=== PATIENT | male | born 1995 | race African-American/Black ===

== ENCOUNTER 2019-07-13 03:38 | Emergency (ER) | payer OTHER ==
[~2019-07-13] VITALS: Ht 177.8 cm; Wt 81.2 kg
--- NOTE | 2019-07-13 03:40 | PHYS DOC ---
Past History Past Medical History Allergies (RAINE DENNY MD) Additional Smoking Information: vape (RAINE DENNY MD) General Adult HPI: HPI: ".. I woke up with a really bad chest pain.. about 1 1/2 hours ago.. here in center of my chest.. 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 Patient localizes pain in the left of sternal border at approximately T5 level. Pain is rated as 10 out of 10. Patient states it does have some burning characteristics. Patient denies any history of trauma. Patient denies any prior history of cardiac disorders with him or family members. Patient denies any history of coagulopathy with him or family members. Notes recent travel outside the [place] area. No history of immunosuppression. No history of coughing or fever. No history of specific ill contacts. No history immunosuppression. Patient does have an allergy to ibuprofen which causes swelling. Patient does vape. (RAINE DENNY MD) Review of Systems: Review of Systems: Constitutional: Denies fever or chills Eyes: Denies change in visual acuity HENT: Denies nasal congestion or sore throat Respiratory: Denies cough or shortness of breath Cardiovascular: Complains of chest pain GI: Denies abdominal pain, nausea, vomiting, bloody stools or diarrhea : Denies dysuria Musculoskeletal: Denies back pain or joint pain Integument: Denies rash Neurologic: Denies headache, focal weakness or sensory changes Endocrine: Denies polyuria or polydipsia Lymphatic: Denies swollen glands Psychiatric: Denies depression or anxiety (RAINE DENNY MD) Heart Score: HEART Score for Chest Pain: HEART Score for Chest Pain Response (Comments) Value History Slighlty/Non-Suspicious 0 ECG Normal 0 Age < 45 0 Risk Factors 1 or 2 Risk Factors 1 Troponin < Normal Limit 0 Total 1 Risk Factors: Risk Factors: DM, Current or recent (<one month) smoker, HTN, HLP, family history of CAD, obesity. Risk Scores: Score 0 - 3: 2.5% MACE over next 6 weeks - Discharge Home Score 4 - 6: 20.3% MACE over next 6 weeks - Admit for Clinical Observation Score 7 - 10: 72.7% MACE over next 6 weeks - Early Invasive Strategies (RAINE DENNY MD) Family History: Family History: Mother has hypertension age 40s, father is healthy (RAINE DENNY MD) Current Medications: Current Meds: See nursing for home meds (RAINE DENNY MD) Allergies: Allergies: Allergic to ibuprofen (RAINE DENNY MD) Physical Exam: PE: Constitutional: Well developed, well nourished, reports acute distress, non- toxic appearance. [] HENT: Normocephalic, atraumatic, bilateral external ears normal, oropharynx moist, no oral exudates, nose normal. [] Eyes: PERRLA, EOMI, conjunctiva normal, no discharge. [] Neck: Normal range of motion, no tenderness, supple, no stridor. [] Cardiovascular:Heart rate regular rhythm, no murmur [] Lungs & Thorax: Bilateral breath sounds equal apex with few scattered wheezes on auscultation [] Abdomen: Bowel sounds normal, soft, no tenderness, no masses, no pulsatile masses. [] Skin: Warm, dry, no erythema, no rash. [] Back: No tenderness, no CVA tenderness. [] Extremities: No tenderness, no cyanosis, no clubbing, ROM intact, no edema. [] Neurologic: Alert and oriented X 3, normal motor function, normal sensory function, no focal deficits noted. [] Psychologic: Affect anxious , judgement normal, mood normal. [] (RAINE DENNY MD) EKG: EKG: My interpretation EKG shows a sinus rhythm at 68 bpm. There is some J-point elevation V2 V3 V4 V5. But no findings of acute STEMI with contralateral changes. [ ]My interpretation of second EKG shows a sinus bradycardia rhythm at 54 bpm. No acute morphology. No acute change from prior EKG. (RAINE DENNY MD) Radiology/Procedures: Radiology/Procedures: [][address] [address] IMAGING REPORT Signed PATIENT: ANETTE SÁNCHEZ ACCOUNT: [id number] : 1995 LOCATION: ER AGE: 24 SEX: M EXAM STATUS: REG ER ORD. PHYSICIAN: RAINE DENNY MD REASON: cp PROCEDURE: CHEST PA & LATERAL EXAM: PA and Lateral Views of the Chest DATE: 07/13/2019 3:41 AM INDICATION: Chest pain COMPARISON: No Prior FINDINGS: Evaluation of the apices limited given lordotic technique. The heart is not enlarged. Mediastinal and hilar contours are normal. No focal parenchymal airspace opacity. No pleural effusion or pneumothorax. IMPRESSION: 1. No radiographic evidence for acute cardiopulmonary process. Electronically signed by: Asher Wilson MD (07/13/2019 4:27 AM) [facility] DI[facility]ATED AND SIGNED BY: ASHER WILSON MD DATE: 07/13/19 0427 CC: RAINE DENNY MD; PCP,NO ~ (RAINE DENNY MD) Course & Med Decision Making: Course & Med Decision Making Pertinent Labs and Imaging studies reviewed. (See chart for details) Follow up with primary. Take Tylenol for pain. Return if any concerns. Impression: 1. Chest Pain- Atypical [] (RAINE DENNY MD) Dragon Disclaimer: Nigel Disclaimer: This electronic medical record was generated, in whole or in part, using a voice recognition dictation system. (RAINE DENNY MD) Departure Departure: Impression: Primary Impression: Chest pain Qualified Codes: R07.9 - Chest pain, unspecified Disposition: 01 HOME/RESIDENCE PRIOR TO ADM Condition: STABLE Referrals: PCP,NO (PCP) Patient Instructions: Chest Pain (Nonspecific) RAINE DENNY MD Jul 13, 2019 03:40 JULY DURAND Jr., DO Jul 13, 2019 06:49
[2019-07-13] MEDS ORDERED: ASPIRIN CHEWABLE 81 MG TABLET. PO ONE (03:45)
[2019-07-13] MEDS ORDERED: IV RINGERS SOLUTION,LACTATED 1,000 ML IV SCH (04:00)
[2019-07-13 04:01] LABS: BASO % 1 % (0-3); EOS # 0.2 x10^3/uL (0.0-0.7); EOS % 2 % (0-3); HEMATOCRIT 42.6 % (39.0-53.0); HEMOGLOBIN 13.9 g/dL (13.0-17.5); LYMPH # 1.6 x10^3/uL (1.0-4.8); LYMPH % 19 % (24-48); MEAN CORPUSCULAR HEMOGLOBIN 29 pg (25-35); MEAN CORPUSCULAR HGB CONC 33 g/dL (31-37); MEAN CORPUSCULAR VOLUME 88 fL (79-100); MONO # 0.8 x10^3/uL (0.0-1.1); MONO % 9 % (0-9); NEUT # 5.7 x10^3uL (1.8-7.7); NEUT % 69 % (31-73); PLATELET COUNT 138 x10^3/uL (140-400); RED BLOOD COUNT 4.84 x10^6/uL (4.30-5.70); WHITE BLOOD COUNT 8.3 x10^3/uL (4.0-11.0)
[2019-07-13 04:07] LABS: BACTERIA,URINE 0 /HPF (0-FEW); BILIRUBIN,URINE NEG (NEG); CLARITY,URINE CLEAR; COLOR,URINE YELLOW; GLUCOSE,URINE NEG (NEG); NITRITE,URINE NEG (NEG); RBC,URINE 0 /HPF (0-2); SQUAMOUS EPITHELIAL CELL,UR OCC /LPF; UROBILINOGEN,URINE 0.2 mg/dL (0.2 mg/dL); WBC,URINE OCC /HPF (0-4)
[2019-07-13 04:10] LABS: BARBITURATES NEG (NEG); BENZODIAZEPINES NEG (NEG); CANNABINOIDS NEG (NEG); COCAINE NEG (NEG); METHADONE NEG (NEG); OPIATES NEG (NEG); PHENCYCLIDINE NEG (NEG)
[2019-07-13 04:10] LABS: ANION GAP 7 (6-14); BLOOD UREA NITROGEN 14 mg/dL (8-26); CALCIUM 9.1 mg/dL (8.5-10.1); CARBON DIOXIDE 31 mmol/L (21-32); CHLORIDE 100 mmol/L (98-107); CREATININE 1.5 mg/dL (0.7-1.3); GFR 70.2; GLUCOSE 119 mg/dL (70-99); SODIUM 138 mmol/L (136-145)
[2019-07-13 04:13] LABS: AMPHETAMINE/METHAMPHETAMINE NEG (NEG)
[2019-07-13 04:23] LABS: ALBUMIN 3.8 g/dL (3.4-5.0); ALK PHOS 63 U/L (46-116); ALT (SGPT) 22 U/L (16-63); AST (SGOT) 21 U/L (15-37); DIRECT BILIRUBIN 0.1 mg/dL (0.0-0.2); LIPASE 103 U/L (73-393); MAGNESIUM 1.9 mg/dL (1.8-2.4); TOTAL BILIRUBIN 0.4 mg/dL (0.2-1.0); TOTAL PROTEIN 7.4 g/dL (6.4-8.2)
--- NOTE | 2019-07-13 04:29 | RAD ---
EXAM: PA and Lateral Views of the Chest DATE: 07/13/2019 3:41 AM INDICATION: Chest pain COMPARISON: No Prior FINDINGS: Evaluation of the apices limited given lordotic technique. The heart is not enlarged. Mediastinal and hilar contours are normal. No focal parenchymal airspace opacity. No pleural effusion or pneumothorax. IMPRESSION: 1. No radiographic evidence for acute cardiopulmonary process. Electronically signed by: Asher Brown MD (07/13/2019 4:27 AM) [facility]
[2019-07-13] MEDS ORDERED: ACETAMINOPHEN 500 MG TABLET PO ONE (04:30)
[2019-07-13 06:45] VITALS: BP 100/54
--- NOTE | 2019-07-13 06:46 | EKG ---
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
--- NOTE | 2019-07-13 06:47 | EKG ---
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
[2019-07-13 20:52] LABS: THYROID STIM HORMONE (TSH) 1.334 uIU/mL (0.358-3.740)
== END 2019-07-13 07:13 | disposition home or self-care (01) ==
LOC: ER 03:38
DX: F17.220 Nicotine dependence, chewing tobacco, uncomplicated (principal); Z88.6 Allergy status to analgesic agent; R07.2 Precordial pain
CPT/HCPCS: 36415; 71046; 80048; 80061; 80076; 80307; 81001; 82550; 83690; 83735; 83880; 84443; 84484; 85025; 85379; 85610; 85730; 93005; 99285; J7120

== ENCOUNTER 2019-07-14 00:18 | Emergency (ER) | payer OTHER ==
[~2019-07-14] VITALS: Ht 177.8 cm; Wt 81.2 kg
[2019-07-14 00:25] VITALS: BP 128/80
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
[2019-07-14] MEDS ORDERED: methylPREDNISolone ACETATE 40 MG/ML VIAL. IM ONE (01:00)
[2019-07-14] MEDS ORDERED: CONTRAST GIVEN MC PRN (01:00)
[2019-07-14] MEDS ORDERED: IV RINGERS SOLUTION,LACTATED 1,000 ML IV SCH (01:00)
[2019-07-14] MEDS ORDERED: IOHEXOL 350 MG/ML 100 ML VIAL. IV ONE (01:00)
[2019-07-14 01:27] LABS: BASO % 0 % (0-3); EOS # 0.3 x10^3/uL (0.0-0.7); EOS % 4 % (0-3); HEMATOCRIT 40.1 % (39.0-53.0); HEMOGLOBIN 13.2 g/dL (13.0-17.5); LYMPH # 2.1 x10^3/uL (1.0-4.8); LYMPH % 32 % (24-48); MEAN CORPUSCULAR HEMOGLOBIN 29 pg (25-35); MEAN CORPUSCULAR HGB CONC 33 g/dL (31-37); MEAN CORPUSCULAR VOLUME 89 fL (79-100); MONO # 0.7 x10^3/uL (0.0-1.1); MONO % 11 % (0-9); NEUT # 3.3 x10^3uL (1.8-7.7); NEUT % 52 % (31-73); PLATELET COUNT 136 x10^3/uL (140-400); RED BLOOD COUNT 4.53 x10^6/uL (4.30-5.70); RED CELL DISTRIBUTION WIDTH 13.2 % (11.5-14.5); WHITE BLOOD COUNT 6.4 x10^3/uL (4.0-11.0)
[2019-07-14 01:38] LABS: CALCIUM 8.3 mg/dL (8.5-10.1); CREATININE 1.3 mg/dL (0.7-1.3); GFR 82.8; POTASSIUM 3.6 mmol/L (3.5-5.1)
--- NOTE | 2019-07-14 01:38 | RAD ---
EXAM: CT chest with contrast - pulmonary embolus protocol CLINICAL HISTORY: Pleuritic chest pain COMPARISON: None. TECHNIQUE: CT of the chest following the administration of intravenous contrast during the pulmonary arterial phase. Axial, coronal and sagittal reformatted images were generated including MIP images. ---PQRS compliance statement - One or more of the following individualized dose reduction techniques were utilized for this study: 1. Automated exposure control 2. Adjustment of the mA and/or kV according to patient size 3. Use of iterative reconstruction technique--- FINDINGS: CHEST: Diagnostic quality: Adequate. Pulmonary emboli: None seen Right heart strain: None Pulmonary arteries: Normal in caliber. Heart is not enlarged. No pericardial effusion. No pleural effusion or pneumothorax. Anterior mediastinal soft tissue density may represent residual thymus. No suspicious lung nodule or mass is seen. No lobar consolidation. Visualized Upper abdomen: Unremarkable Bones: No aggressive osseous lesion. IMPRESSION: No evidence for acute pulmonary embolus. Electronically signed by: Asher Brown MD (07/14/2019 1:36 AM) [facility]
[2019-07-14 01:43] LABS: BARBITURATES NEG (NEG); BENZODIAZEPINES NEG (NEG); CANNABINOIDS NEG (NEG); COCAINE NEG (NEG); METHADONE NEG (NEG); OPIATES NEG (NEG); PHENCYCLIDINE NEG (NEG)
[2019-07-14 01:49] LABS: ALBUMIN 3.4 g/dL (3.4-5.0); C REACTIVE PROTEIN 5.6 mg/L (0-3.3); DIRECT BILIRUBIN 0.1 mg/dL (0.0-0.2); MAGNESIUM 1.8 mg/dL (1.8-2.4); TOTAL BILIRUBIN 0.2 mg/dL (0.2-1.0); TOTAL PROTEIN 6.9 g/dL (6.4-8.2)
[2019-07-14 01:54] LABS: BILIRUBIN,URINE NEG (NEG); CLARITY,URINE CLEAR; COLOR,URINE YELLOW; GLUCOSE,URINE NEG (NEG); NITRITE,URINE NEG (NEG)
[2019-07-14 01:55] LABS: BACTERIA,URINE 0 /HPF (0-FEW); RBC,URINE 0 /HPF (0-2); SQUAMOUS EPITHELIAL CELL,UR FEW /LPF; WBC,URINE RARE /HPF (0-4)
[2019-07-14 01:56] LABS: AMPHETAMINE/METHAMPHETAMINE NEG (NEG)
--- NOTE | 2019-07-16 07:17 | EKG ---
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
== END 2019-07-14 03:47 | disposition home or self-care (01) ==
LOC: ER 00:18
DX: R07.89 Other chest pain (principal); D69.6 Thrombocytopenia, unspecified; Z88.8 Allergy status to other drugs, medicaments and biological substances
CPT/HCPCS: 36415; 71275; 80048; 80076; 80307; 81001; 82550; 83690; 83735; 83880; 84484; 85025; 85379; 85610; 85730; 86140; 93005; 96372; 99285; J1030; J7120; Q9967

== ENCOUNTER 2019-07-31 07:22 | Emergency (ER) | payer OTHER ==
[~2019-07-31] VITALS: Ht 177.8 cm; Wt 81.2 kg
[2019-07-31 07:43] VITALS: BP 112/49
[2019-07-31] MEDS ORDERED: IV NORMAL SALINE 1,000ML 1,000 ML IV ONE (07:45)
[2019-07-31] MEDS ORDERED: ONDANSETRON PF 4 MG/2 ML VIAL. IVP ONE (07:45)
[2019-07-31] MEDS ORDERED: ONDA4TAB12 PO (07:53)
--- NOTE | 2019-07-31 07:53 | PHYS DOC ---
Past History Past Medical History: No Pertinent History Past Surgical History: No Surgical History Alcohol Use: Occasionally General Adult EDM: Chief Complaint: NAUSEA/VOMITING/DIARRHEA HPI: HPI: 24-year-old male presents with nausea and vomiting. He was feeling nauseous and had some mild abdominal cramping last night, but was able to sleep. After he woke up this morning, he has had several episodes of vomiting. He does not have any medication to control vomiting at home. He denies fever chills. He has no abdominal pain at this time. Denies diarrhea. Review of Systems: Review of Systems: Constitutional: Denies fever or chills Eyes: Denies change in visual acuity HENT: Denies nasal congestion or sore throat Respiratory: Denies cough or shortness of breath Cardiovascular: Denies chest pain or edema GI: nausea, vomiting. Denies abdominal pain, bloody stools or diarrhea : Denies dysuria Musculoskeletal: Denies back pain or joint pain Integument: Denies rash Neurologic: Denies headache, focal weakness or sensory changes Endocrine: Denies polyuria or polydipsia Lymphatic: Denies swollen glands Psychiatric: Denies depression or anxiety Heart Score: Risk Factors: Risk Factors: DM, Current or recent (<one month) smoker, HTN, HLP, family history of CAD, obesity. Risk Scores: Score 0 - 3: 2.5% MACE over next 6 weeks - Discharge Home Score 4 - 6: 20.3% MACE over next 6 weeks - Admit for Clinical Observation Score 7 - 10: 72.7% MACE over next 6 weeks - Early Invasive Strategies Current Medications: Current Meds: Current Medications Medications (Trade) Dose Ordered Sig/[facility] Start Time Stop Time Status Last Admin Dose Admin Ondansetron HCl (Zofran) 4 mg 1X ONCE 07/31/19 07:45 07/31/19 07:46 DC 07/31/19 07:41 4 MG Sodium Chloride 1,000 ml @ 1,000 mls/hr 1X ONCE 07/31/19 07:45 07/31/19 08:44 07/31/19 07:40 1,000 MLS/HR Allergies: Allergies: Allergies Coded Allergies Type Severity Reaction Last Updated Verified ibuprofen Allergy Severe Swelling 07/13/19 Yes Physical Exam: PE: Constitutional: Well developed, well nourished, no acute distress, non-toxic appearance. [] HENT: Normocephalic, atraumatic, bilateral external ears normal, oropharynx moist, no oral exudates, nose normal. [] Eyes: PERRLA, EOMI, conjunctiva normal, no discharge. [] Neck: Normal range of motion, no tenderness, supple, no stridor. [] Cardiovascular:Heart rate regular rhythm, no murmur [] Lungs & Thorax: Bilateral breath sounds clear to auscultation [] Abdomen: Bowel sounds normal, soft, no tenderness, no masses, no pulsatile masses. [] Skin: Warm, dry, no erythema, no rash. [] Back: No tenderness, no CVA tenderness. [] Extremities: No tenderness, no cyanosis, no clubbing, ROM intact, no edema. [] Neurologic: Alert and oriented X 3, normal motor function, normal sensory function, no focal deficits noted. [] Psychologic: Affect normal, judgement normal, mood normal. [] Current Patient Data: Vital Signs: Vital Signs Date Time Temp Pulse Resp B/P (MAP) Pulse Ox O2 Delivery O2 Flow Rate FiO2 07/31/19 07:43 98.9 65 18 112/49 (70) 97 EKG: EKG: [] Radiology/Procedures: Radiology/Procedures: [] Course & Med Decision Making: Course & Med Decision Making Pertinent Labs and Imaging studies reviewed. (See chart for details) For his vomiting, we have given the patient a liter normal saline and 4 mg of Zofran IV. He has had no further vomiting in the emergency room. I will discharge him with a prescription for Zofran ODT. The patient's labs are unrema rkable except for an elevated creatinine of 1.6. He does appear acutely dehydrated and we have hydrated him. He is stable for discharge at this time. [] Dragon Disclaimer: Dragon Disclaimer: This electronic medical record was generated, in whole or in part, using a voice recognition dictation system. Departure Departure: Impression: Primary Impression: Nausea & vomiting Qualified Codes: R11.2 - Nausea with vomiting, unspecified Disposition: HOME/RESIDENCE PRIOR TO ADM Condition: STABLE Referrals: ABBY CROWE APRN (PCP) Patient Instructions: Nausea and Vomiting, [id number] Scripts Ondansetron (ONDANSETRON ODT) 4 Mg Tab.rapdis 1 TAB PO PRN Q6-8HRS PRN for VOMITING, #16 TAB Prov: KAUR FOX DO 07/31/19 Justification of Admission: Justification of Admission: Justification of Admission Dx: N/A KAUR FOX DO Jul 31, 2019 07:53
[2019-07-31 07:58] LABS: BASO % 0 % (0-3); EOS # 0.2 x10^3/uL (0.0-0.7); EOS % 4 % (0-3); HEMATOCRIT 42.1 % (39.0-53.0); HEMOGLOBIN 13.6 g/dL (13.0-17.5); LYMPH % 36 % (24-48); MEAN CORPUSCULAR HEMOGLOBIN 29 pg (25-35); MEAN CORPUSCULAR HGB CONC 32 g/dL (31-37); MEAN CORPUSCULAR VOLUME 88 fL (79-100); MONO # 0.5 x10^3/uL (0.0-1.1); MONO % 9 % (0-9); NEUT # 2.9 x10^3uL (1.8-7.7); NEUT % 51 % (31-73); PLATELET COUNT 162 x10^3/uL (140-400); RED BLOOD COUNT 4.77 x10^6/uL (4.30-5.70); RED CELL DISTRIBUTION WIDTH 13.2 % (11.5-14.5); WHITE BLOOD COUNT 5.7 x10^3/uL (4.0-11.0)
[2019-07-31 08:06] LABS: CALCIUM 8.8 mg/dL (8.5-10.1); CREATININE 1.6 mg/dL (0.7-1.3); GFR 65.1; POTASSIUM 3.8 mmol/L (3.5-5.1)
[2019-07-31 08:12] LABS: ALBUMIN 3.8 g/dL (3.4-5.0); ALBUMIN/GLOBULIN RATIO 1.1 (1.0-1.7); TOTAL BILIRUBIN 0.6 mg/dL (0.2-1.0); TOTAL PROTEIN 7.4 g/dL (6.4-8.2)
== END 2019-07-31 09:04 | disposition home or self-care (01) ==
LOC: ER 07:22
DX: R11.2 Nausea with vomiting, unspecified (principal); E86.0 Dehydration; Z88.8 Allergy status to other drugs, medicaments and biological substances
CPT/HCPCS: 36415; 80053; 85025; 96361; 96374; 99283; J2405; J7030

== ENCOUNTER 2020-06-30 00:35 | Emergency (ER) | payer OTHER ==
[~2020-06-30] VITALS: Ht 177.8 cm; Wt 75.0 kg
[~2020-06-30 00:35] MED LIST: ONDA4TAB12 PO
[2020-06-30 00:40] VITALS: BP 117/67
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
[2020-06-30] MEDS ORDERED: DIPH,PERTUSS(ACELL),TET VAC/PF 0.5 ML SYRINGE. VAX IM ONE (01:30)
[2020-06-30] MEDS ORDERED: oxyCODONE/APAP 5/325 1 TAB TABLET PO ONE (01:30)
== END 2020-06-30 01:20 | disposition home or self-care (01) ==
LOC: ER 00:35
DX: S01.81XA Laceration without foreign body of other part of head, initial encounter (principal); Z88.6 Allergy status to analgesic agent; Y08.89XA Assault by other specified means, initial encounter; Y93.89 Activity, other specified; Y92.89 Other specified places as the place of occurrence of the external cause; Y99.8 Other external cause status
CPT/HCPCS: 90471; 90715; 99283